=== PATIENT | female | born 1975 | race Caucasian/White ===

== ENCOUNTER 2018-10-29 12:34 | Emergency (ER) | payer OTHER ==
--- NOTE | 2018-10-29 12:36 | PDOC ---
History of Present Illness - General Chief Complaint: Headache Stated Complaint: HEADACHE Time Seen by Provider: 10/29/18 12:35 - History of Present Illness Initial Comments: 43 year old female with hypothyoroiism and NIDDM presenting with intermittent headache for the past three weeks. States that it started in the posterior right portion of her head/ neck and has migrated up and down her scalp and her neck. Denies any trauma or change in activity. Describes the headache as a sharp pain and occasionally a pressure that co-presents with nausea and sometimes balance issues when at its most severe. Occasionally light and loud sound do exacerbate the headache when it is most severe. 10/29/18 12:49 Past History - Past Medical History Allergies/Adverse Reactions: Allergies Allergy/AdvReac Type Severity Reaction Status Date / Time No Known Allergies Allergy Verified 10/29/18 12:38 Home Medications: Ambulatory Orders Metformin HCl [Glucophage] 500 mg PO BID 10/29/18 Naproxen Sodium 220 mg PO TID 7 Days #21 capsule 10/29/18 Review of Systems - Review of Systems Constitutional: No: Chills, Diaphoresis, Fever Respiratory: No: Cough, Orthopnea, Shortness of Breath Cardiac (ROS): No: Chest Pain, Edema, Irregular Heart Rate ABD/GI: Yes: Diarrhea. No: Constipated, Nausea, Vomiting *Physical Exam - Physical Exam General Appearance: Yes: Nourished, Appropriately Dressed. No: Apparent Distress HEENT: positive: EOMI, SHANT, Normal ENT Inspection, Normal Voice Neck: positive: Trachea midline, Normal Thyroid, Supple. negative: Tender, Rigid Respiratory/Chest: positive: Lungs Clear, Normal Breath Sounds. negative: Chest Tender, Respiratory Distress, Accessory Muscle Use Cardiovascular: positive: Regular Rhythm, Regular Rate Gastrointestinal/Abdominal: positive: Normal Bowel Sounds, Flat, Soft. negative : Tender Lymphatic: negative: Adenopathy, Tenderness Musculoskeletal: positive: Normal Inspection, Other (right sided paraspinal muscular tenderness). negative: Decreased Range of Motion Extremity: positive: Normal Capillary Refill, Normal Inspection, Normal Range of Motion. negative: Tender Integumentary: positive: Normal Color, Dry, Warm Neurologic: positive: Fully Oriented, Alert, Normal Mood/Affect, Normal Response , Motor Strength 5/5 ED Treatment Course - LABORATORY CBC & Chemistry Diagram: 10/29/18 12:56 10/29/18 12:56 Medical Decision Making - Medical Decision Making 43 year old female with intermittent headache for three weeks. CT negative for pathology and labs WNL with exception of TSH which was elevated to the 6s. Symptoms improved. Will DC with follow up with her PCP next week for thyroid medication management as this might be the cause of her headache. 10/29/18 15:29 *DC/Admit/Observation/Transfer Diagnosis at time of Disposition: Headache Qualifiers: Headache type: unspecified Headache chronicity pattern: acute headache Intractability: not intractable Qualified Code(s): R51 - Headache - Discharge Dispostion Disposition: HOME Condition at time of disposition: Improved Decision to Admit order: No - Prescriptions Prescriptions: Naproxen Sodium 220 mg PO TID 7 Days #21 capsule - Referrals Referrals: Yared Bernstein DO [Staff Physician] - - Patient Instructions Printed Discharge Instructions: DI for Headache Additional Instructions: Please stay hydrated and eat at least three meals a day. Please follow up with your doctor at your appointment next week and please make a neurologist appointment as well for headache management. Please return to the ED if you have new or worsening symptoms. - Post Discharge Activity
[2018-10-29 12:37] VITALS: TEMP 97.8; BMI 27.8
--- NOTE | 2018-10-29 12:45 | PDOC ---
Attending Attestation - Resident Resident Name: Tamera Gomez - ED Attending Attestation I have performed the following: I have examined & evaluated the patient, The case was reviewed & discussed with the resident, I agree w/resident's findings & plan, Exceptions are as noted - HPI HPI: 10/29/18 13:00 43 year old female c/ hx of distant migraines, diabetes, thyroid disorder presents with headache x 3 weeks. The patient reports that the headache started with a squeezing right sided headache. Not worst headache of life. States that the headache would come and go randomly. Once occurred, would stay for approximately 5 hours. Medications usually do not help. At times, there is no headache. No neck pain or neck stiffness. States that occasionally she gets parasthesias on either side of her body, which would resolve by turning her body to one side. No fevers, chills. Has not had a migraine x 8 years. headache occasionally associated with phono and photophobia. Denies any neurological deficits. Pt's daughter prompted pt to go to the ER. - Physicial Exam PE: 10/29/18 13:02 GENERAL: Awake, alert, and fully oriented, in no acute distress HEAD: No signs of trauma EYES: PERRLA, EOMI, sclera anicteric, conjunctiva clear ENT: Auricles normal inspection, hearing grossly normal, nares patent, TMs clear without erythema or drainage.Moist mucosa NECK: Normal ROM, supple, LUNGS: Breath sounds equal, clear to auscultation bilaterally. No wheezes, and no crackles HEART: Regular rate and rhythm, normal S1 and S2, no murmurs, rubs or gallops EXTREMITIES: Normal range of motion, no edema. No clubbing or cyanosis. No cords, erythema, or tenderness NEUROLOGICAL: Cranial nerves II through XII intact. Normal speech, normal gait. No pronator drift. 5/5 strength upper and lower extremities. Sensation intact throughout. Finger to nose normal. Rapid alterating normal. SKIN: Warm, Dry, normal turgor, no rashes or lesions noted. - Medical Decision Making 10/29/18 13:04 Vital Signs Temp Pulse Resp BP Pulse Ox 97.8 F 80 18 115/81 100 10/29/18 12:34 10/29/18 12:34 10/29/18 12:34 10/29/18 12:34 10/29/18 12:34 This is a 43-year-old female with intermittent headaches for 3 weeks. Patient has no neurological deficits at this time. Differential includes tension headache versus migraine headache versus less likely intracranial pathology such as brain tumor. However, we'll obtain a head CT. We'll obtain labs to evaluate for other potential causes a headache including anemia, acute kidney injury or metabolic disarray. Trial migraine medications and reassess. 10/29/18 13:[address] reviewed. No acute findings. 10/29/18 14:20 Headache improved with tylenol, benadryl and reglan 10/29/18 15:09 TSH ~ 7. Could hypothyroidism be a potential source of her headache? We will need to give her a copy of the results and have her follow up for medication readjustment. If the blood work demonstrates no acute findings, the patient can be discharged with supportive care and will be treated as a migraine for the moment. Will refer her to outpatient neurology for further management and disposition. Heart Score/ECG Review #1 ECG reviewed & interpreted by me at: 13:30 10/29/18 13:32 NSR 62, no std/case, normal axis, normal intervals, T wave flat III, QTC 434 msec
[2018-10-29] MEDS ORDERED: METOCLOPRAMIDE HCL 10 MG TABLET (FP) PO ONE (12:54)
[2018-10-29] MEDS ORDERED: ACETAMINOPHEN 1000 MG/100 ML VIAL (NON FORMULARY) IVPB ONE (12:54)
[2018-10-29] MEDS ORDERED: SODIUM CHLORIDE 0.9% 500 ML INFUS.BAG IV ONE (12:55)
[2018-10-29] MEDS ORDERED: METOCLOPRAMIDE HCL INJECTION 10 MG/2 ML VIAL ONE (12:58)
[2018-10-29] MEDS ORDERED: ACETAMINOPHEN INJECTION 100 ML IVPB ONE (12:58)
[2018-10-29 13:19] LABS: BASO % 0.9 % (0-2.0); EOS % 5.1 % (0-4.5); HEMATOCRIT 38.2 % (32.4-45.2); HEMOGLOBIN 12.6 GM/dl (10.7-15.3); LYMPH % 34.7 % (8-40); MCH 27.8 pg (25.7-33.7); MEAN PLT VOLUME 10.4 fl (7.5-11.1); MONO % 5.9 % (3.8-10.2); NEUT % 53.4 % (42.8-82.8); PLATELET COUNT 197 K/MM3 (134-434); RBC 4.55 M/mm3 (3.60-5.2); RDW 12.9 % (11.6-15.6); WHITE BLOOD COUNT 7.2 K/mm3 (4.0-10.8)
[2018-10-29 13:30] LABS: MAGNESIUM 1.7 mg/dL (1.8-2.4)
[2018-10-29 15:23] LABS: ANION GAP 9 MMOL/L (8-16); BLOOD UREA NITROGEN 12 mg/dl (7-18); CHLORIDE 105 mmol/L (98-107); CO2 23 mmol/L (21-32); CREATININE 0.7 mg/dl (0.55-1.3); GLUCOSE,RANDOM 93 mg/dl (74-106); POTASSIUM 3.8 mmol/L (3.5-5.1); SODIUM 137 mmol/L (136-145)
[2018-10-29 15:24] LABS: ALBUMIN 3.9 g/dl (3.4-5.0); ALK PHOS 64 U/L (45-117); BILIRUBIN,TOTAL 0.3 mg/dl (0.2-1); CALCIUM 8.9 mg/dl (8.5-10); SGOT/AST 12 U/L (15-37); SGPT/ALT 18 U/L (13-61); TOT PROT 7.9 g/dl (6.4-8.2)
[2018-10-29 15:54] VITALS: BP 96/61; PULSE 64
--- NOTE | 2018-10-30 08:32 | EKG ---
Test Reason : Blood Pressure : / mmHG Vent. Rate : 062 BPM Atrial Rate : 062 BPM P-R Int : 150 ms QRS Dur : 080 ms QT Int : 428 ms P-R-T Axes : 041 054 030 degrees QTc Int : 434 ms NORMAL SINUS RHYTHM NORMAL ECG NO PREVIOUS ECGS AVAILABLE Confirmed by MD TRANG, BRAD ([id number]) on 10/30/2018 8:32:06 AM Referred By: SOFIE HILL Confirmed By:BRAD COSTELLO MD
== END 2018-10-29 15:59 | disposition home or self-care (01) ==
LOC: FER 12:34
PROC: 3E033GC Introduction of Other Therapeutic Substance into Peripheral Vein, Percutaneous Approach (ICD-10-PCS; principal; 2018-10-29)
PROC: 3E0337Z Introduction of Electrolytic and Water Balance Substance into Peripheral Vein, Percutaneous Approach (ICD-10-PCS; 2018-10-29)
PROC: 3E033NZ Introduction of Analgesics, Hypnotics, Sedatives into Peripheral Vein, Percutaneous Approach (ICD-10-PCS; 2018-10-29)
DX: R51 Headache (principal); E11.9 Type 2 diabetes mellitus without complications; E03.9 Hypothyroidism, unspecified; Z79.84 Long term (current) use of oral hypoglycemic drugs
CPT/HCPCS: 36415; 70450-TC; 80053; 81025; 83735; 84443; 84484; 85025; 93005; 96374; 96375; 99283-25; J0131